=== PATIENT | male | born 1965 | race Two or more races ===

== ENCOUNTER 2020-01-07 18:57 | Emergency (ER) | payer SELFPAY ==
[~2020-01-07] VITALS: Ht 172.7 cm; Wt 76.2 kg
--- NOTE | 2020-01-07 19:32 | NUR ---
PT STATES FEVER X 1 WEEK, COUGH X YESTERDAY. PT STATES HE WAS TESTED FOR COVID AT [facility], AND LABS DRAWN AT [facility] LAST WEEK, STILL PENDING RESULTS. PT STATES TAKING TYL, LAST DOSE AT 1400, 325MG.
[2020-01-07] MEDS ORDERED: ACETAMINOPHEN 325 MG TABLET ONE (19:45)
[2020-01-07] MEDS ORDERED: ACETAMINOPHEN 325 MG TABLET PO ONE (20:00)
[2020-01-07] MEDS ORDERED: PLEASE ENTER ALLERGIES MC SCH (20:00)
[2020-01-07 20:41] LABS: BASOPHILS # (AUTO) 0.02 x10^3/uL (0-0.1); BASOPHILS % (AUTO) 0 % (0-1); EOSINOPHILS % (AUTO) 1 % (1-7); LYMPHOCYTES # (AUTO) 1.04 x10^3/uL (1-3.4); LYMPHOCYTES % (AUTO) 13 % (22-44); MD NO; MEAN CORPUSCULAR HEMOGLOBIN 31.7 pg (27.5-34.5); MEAN CORPUSCULAR HGB CONC 34.3 g/dL (33.2-36.2); MEAN CORPUSCULAR VOLUME 92.4 fL (81-97); MONOCYTES # (AUTO) 0.27 x10^3/uL (0.2-0.8); MONOCYTES % (AUTO) 3 % (2-9); NEUTROPHILS # (AUTO) 6.53 x10^3/uL (1.8-6.8); NEUTROPHILS % (AUTO) 82 % (42-75); PLATELET COUNT 265 x10^3/uL (130-400); RED BLOOD COUNT 4.16 x10^6/uL (4.38-5.82); RED CELL DISTRIBUTION WIDTH 13.6 % (9.4-14.8)
[2020-01-07 20:52] LABS: ALBUMIN 2.9 g/dL (3.4-5.0); ANION GAP 10 mmol/L (5-15); CALCIUM 8.1 mg/dL (8.5-10.1); CHLORIDE 105 mmol/L (98-107); CREATININE 0.91 mg/dL (0.7-1.3)
[2020-01-07 21:09] VITALS: BP 130/76
--- NOTE | 2020-01-07 22:01 | NUR ---
Patient given discharge instructions and they have confirmed that they understand the instructions. Patient ambulatory with steady gait.
== END 2020-01-07 22:06 | disposition home or self-care (01) ==
LOC: ED 19:39
DX: J18.1 Lobar pneumonia, unspecified organism (principal); R50.9 Fever, unspecified; R05 Cough; R94.31 Abnormal electrocardiogram [ECG] [EKG]
CPT/HCPCS: 36415; 71045; 80048; 82040; 83605; 85025; 87040; 93005; 99285